=== PATIENT | female | born 1995 | race Caucasian/White ===

== ENCOUNTER → 2016-08-23 21:12 | Observation (INO) ==
--- NOTE | 2016-08-23 21:04 | Discharge Summary ---
Date of Encounter: 08/23/16 Time of Encounter: 21:05 - Discharge Diagnosis (1) 24 weeks gestation of Priority: Secondary Status: Acute Comments: Ms Moya arrives at L&D triage with c/o right lower quadrant pain that began yesterday evening upon standing. She describes the pain as ripping, sharp, and stabbing. It is worse with movement. She has tried tylenol for pain and believes it may have helped, but did not take it away completely. She denies LOF, vaginal bleeding, change/increase in vaginal discharge, headache, vision changes, and epigastric pain. She denies vomiting, nausea, and diarrhea. She states she may be feeling movement, but is unsure as of this time because she was told she has "an extra layer in front that is normal". 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 FHTs 160's per doppler. No contractions palpated; uterus palpates soft. (2) Round ligament pain Priority: Primary Status: Acute Comments: Urinalysis with reflex culture sent - results insignificant. No CVA or suprapubic tenderness. Able to reproduce pain with palpation in right lower quadrant adjacent to the uterus in the area of the round ligament. Discussed discomforts of and when to return to care. Discussed use of tylenol, heat or cold application, warm (not hot) baths, support belt, not making sudden movements, and use of pillows for support when sleeping. Encouraged follow up with Primary [facility] on Thursday if pain has not decreased; or return to care if pain worsens sooner. Patient has routine visit scheduled for this week. - Discharge Medications Home Medications: Aspirin 81 mg PO DAILY 01/22/15 [History] Pnv with Ca,No.72/Iron,Carb/FA [ Plus Iron Tablet] 1 each PO DAILY 08/23 [History] Allergies/Adverse Reactions: Allergies No Known Allergies Allergy (Verified 04/29/16 17:35) Date of admission: 08/23/16 20:05 Discharging clinician: Jane Mccollum - Patient Status Disposition: Home, Self-Care Condition: Good Functional capacity at discharge: independent ambulation - Discharge Instructions Follow Up With: Yoseph Carlin DO [Non-Partnered Physician] - - Diet and Activity Activity: resume usual activities as tolerated Diet: regular diet Hospital Course [facility] Time Attestation: Total time spent providing and/or coordinating discharge services: Time Spent: Less than 30 minutes Exam - Constitutional General appearance IM: cooperative, A&O X 3, pleasant - Respiratory Respiratory exam: Present: CTAB - Cardiovascular Cardiovascular exam IM: Present: RRR, +S1, +S2 - GI/Abdominal GI/Abdominal exam IM: normal bowel sounds, soft, tenderness (right lower quadrant - can reproduce with palpation) - Uterus Position: 2 Fingers Above Umbilicus, Midline Additional comments: soft, no contractions palpated - Extremities Exam Extremities exam IM: Present: normal capillary refill, normal inspection, radial pulses palpable and symetrical - Neurological Exam Neurological exam: alert, oriented X3, reflexes normal, no focal deficits - VTE Reasons for not Prescribing Prophylaxis: Treatment not Indicated - Low risk for VTE
[2016-08-23 21:06] LABS: Bilirubin,Urine Negative (Negative); Blood,Urine Negative (Negative); Clarity,Urine Clear (Clear); Color,Urine Yellow (Yellow); Glucose,Urine (UA) Normal (Normal); Ketones,Urine Negative (Negative); Leukocyte Esterase,Urine Negative (Negative); Nitrite,Urine Negative (Negative); PH,Urine 6.5 pH Units (5.0-8.0); Protein,Urine Negative (Neg-Trace); Specific Gravity,Urine 1.025 (1.010-1.025); Urobilinogen,Urine Normal (Normal)
== END | disposition home or self-care (01) ==
LOC: 1NENULAB
PROVIDERS: ADMIT Advanced Practice Midwife; ATTEND Obstetrics & Gynecology

== ENCOUNTER → 2016-12-14 15:40 | Observation (INO) ==
[2016-12-14 14:58] LABS: Basophils % 0.1 %; Eosinophils # 0.1 K/mcL (0.0-0.6); Eosinophils % 0.7 %; Hematocrit 34.4 % (35.3-44.9); Hemoglobin 11.9 g/dL (11.5-15.4); Immature Granulocytes % 0.4 % (0-4); Lymphocytes # 1.5 K/mcL (0.6-4.6); Lymphocytes % 19.3 %; Mean Corpuscular HGB Conc 34.6 g/dL (31.6-35.5); Mean Corpuscular Volume 86.6 fL (83.0-100.0); Mean Platelet Volume 11.2 fL (9.4-12.4); Monocytes # 0.5 K/mcL (0.0-1.3); Monocytes % 6.6 %; Neutrophils # 5.5 K/mcL (1.6-8.9); Platelet Count 168 K/mcL (140-400); Red Blood Count 3.97 M/mcL (3.82-4.97); Red Cell Distribution Width 12.8 % (11.5-14.5); Segmented Neutrophils % 72.9 %
[2016-12-14 15:07] LABS: Protein/Creatinine Ratio,Urine 0.13 mg/mg (0-0.20)
[2016-12-14 15:14] LABS: Alanine Aminotransferase 18 Units/L (0-55); Aspartate Amino Transferase 19 Units/L (5-34); BUN/Creatinine Ratio 13 (6-26); Blood Urea Nitrogen 9 mg/dL (7-20); Lactate Dehydrogenase 191 Units/L (159-327); Uric Acid 4.2 mg/dL (2.6-6.0); eGFR For African Americans > 60 (> 60); eGFR For Non-African Americans > 60 (> 60)
--- NOTE | 2016-12-14 15:24 | OB/GYN Progress Note ---
Date of Encounter: 12/14/16 Time of Encounter: 15:21 - Assessment and Plan (1) 38 weeks gestation of Current Visit: Yes Status: Acute Denies uc's, vb or lof. +GFM. RNST (2) Lower extremity edema Current Visit: Yes Status: Acute Pt with bilat LE edema, no upper extremity edema. Pt worried about PIH given her neurologic disease. Labs WNL. BP's excellent. (3) Echeverria-echeverria disease Current Visit: Yes Status: Acute No neruologic symptoms at this time. Delivery planned at [facility] next week. Subjective - Subjective Principal diagnosis: 38 weeks gestation, moyamoia disease, lower extremity swelling Interval history: 21 yo female at 38w1d with preg complicated by moyamoia disease presents with lower extremity swelling over the last couple weeks. She is worried b/c her bp "was a little elevated" at last visit with her [facility] physician last . She denies MENA, vision changes, weakness, or MS changes. She does report lowere but no upper extremity edema. She denies scotoma or RUQ pain. She denies uc's , vb or lof. Objective - Vital Signs Vital Signs: Intake and Output 12/13/16 12/14/16 12/14/16 23:59 07:59 15:59 Other: Weight 73 kg Patient Weight 12/14/16 23:59 Weight 73 kg - Exam FHR: category 1 Auscultation: bilateral: normal Abdomen: Present: gravid Cervical dilation: cl/th/-2 Comments: trace bilat lower extremity edema, no upper extremity edema. - Labs Labs: Abnormal lab results Hct 34.4 % (35.3-44.9) L 12/14/16 14:30
== END | disposition home or self-care (01) ==
LOC: 1NENULAB
PROVIDERS: ADMIT Obstetrics & Gynecology; ATTEND Obstetrics & Gynecology